=== PATIENT | male | born 1950 | race Caucasian/White ===

== ENCOUNTER → 2023-03-16 11:33 | Outpatient (CLI) | payer MEDICARE, OTHER, SELFPAY ==
--- NOTE | ~2023-03-16 | CT_ITS ---
EXAMINATION: CT sinus wo con DATE: 03/16/2023 11:53 INDICATION: Chronic sinusitis TECHNIQUE: Computed tomography (CT) of the paranasal sinuses was performed without intravenous contra st. The dose-length product (DLP) was 272.93 mGy-cm. Iterative reconstruction was used. COMPARISON: None FINDINGS: There is normal development and pneumatization of the paranasal sinuses. There is mild muco miguel thickening of the frontal and maxillary sinuses and ethmoidal air cells. The sphenoid sinuses are clear. There are 3 mm of rightward deviation of the nasal septum. The bilateral ostiomeatal complexe s are patent. Visualized soft tissues are unremarkable. The mastoid air cells are clear. IMPRESSION: 1. Mild mucosal thickening of the frontal and maxillary sinuses and ethmoidal air cells. Reviewed, dictated and finalized at location L. HT OPERATIONS DISPATCH CLERK IMPRESSION: 1. Mild mucosal thickening of the frontal and maxillary sinuses and ethmoidal a ir cells.
== END ==
PROVIDERS: PCP Internal Medicine; Visit Provider Internal Medicine
DX: J32.9 Chronic sinusitis, unspecified (principal)
CPT/HCPCS: 70486

== ENCOUNTER 2024-08-11 09:35 | Outpatient (CLI) | payer MEDICARE, OTHER, SELFPAY ==
--- OUTSIDE RECORDS SUMMARY | 2024-08-11 09:40 | XMS_ITS | Continuity of Care Document ---
Author Name [facility] Organization [facility] Care Team Providers Care Seal Delivery Vehicle Team Technician Name Role Phone [facility] Unavailable Unavailable Medications Combined list of outpatient medications from Department of Defense and Veterans Affairs facilities.Medications provided include 1) outpatient medications from the last 15 months, and 2) patient-reported medications. Medication Details Route Status Patient Instructions Prescription Expires Prescription Number Last Dispense Date Ordering Provider Order Date Order Qty Source fexofenadin e 180 mg tablet = 1 tab(s), Oral, Daily, # 90 EA, 3 total refill(s ), Hard Stop Oral (given by mouth) Complet ed 03/22/2024 4 2023 90.0 Ambulat ory Pharmac y fexofenadin e 180 mg tablet See Instruct ions, # 90 EA, 2 total refill(s ), Acute Complet ed 03/16/2023 3 2022 90.0 Ambulat ory Pharmac y fexofenadin e 180 mg tablet = 1 tab(s), Oral, Daily, # 90 EA, 3 total refill(s ), Hard Stop Oral (given by mouth) Ordered 03/14/2025 5 2024 90.0 Ambulat ory Pharmac y FOLIC ACID (U/D) 1 MG ORAL TAB 07/12/2024 [id number] 4 2023 90 [facility] [place] ([facility]) FOLIC ACID (U/D) 1 MG ORAL TAB 01/12/2024 [id number] 3 [address] [place] [address] [facility] ([facility]) folic acid 1 mg tablet = 1 tab(s), Oral, Daily, # 90 EA, 3 total refill(s ), Soft Stop Oral (given by mouth) Ordered 5 2024 90.0 Ambulat ory Pharmac y folic acid 1 mg tablet See Instruct ions, # 30 EA, 1 total refill(s ), Acute Complet ed 06/15/2023 3 2023 30.0 Ambulat ory Pharmac y folic acid 1 mg tablet See Instruct ions, # 30 EA, 2 total refill(s ), Hard Stop Complet ed 10/05/2023 3 2023 30.0 Ambulat ory Pharmac y folic acid 1 mg tablet See Instruct ions, Oral, Daily, # 90 EA, 3 total refill(s ), Hard Stop Oral (given by mouth) Complet ed 07/12/2024 5 2024 90.0 Ambulat ory Pharmac y folic acid 1 mg tablet 1 mg, Oral, Daily, # 90 EA, 2 total refill(s ), Hard Stop Oral (given by mouth) Complet ed 01/12/2024 4 2023 90.0 Ambulat ory Pharmac y furosemide 40 mg tablet See Instruct ions, # 90 EA, 2 total refill(s ), Acute Complet ed 03/16/2023 3 2022 90.0 Ambulat ory Pharmac y furosemide 40 mg tablet 40 mg, Oral, # 90 EA, 3 total refill(s ), Hard Stop Oral (given by mouth) Complet ed 03/22/2024 4 2023 90.0 Ambulat ory Pharmac y furosemide 40 mg tablet = 1 tab(s), Oral, Daily, # 90 EA, 3 total refill(s ), Hard Stop Oral (given by mouth) Ordered 03/14/2025 5 2024 90.0 Ambulat ory Pharmac y gabapentin 100 mg capsule See Instruct ions, Oral, TID, # 270 EA, 3 total refill(s ), Hard Stop Oral (given by mouth) Complet ed 03/22/2024 4 2023 270.0 Ambulat ory Pharmac y gabapentin 100 mg capsule = 1 cap(s), Oral, TID, # 270 EA, 3 total refill(s ), Hard Stop Oral (given by mouth) Ordered 03/14/2025 5 2024 270.0 Ambulat ory Pharmac y gabapentin 100 mg capsule See dose instruct ions in comments , # 270 EA, 2 total refill(s ), Acute Complet ed 03/16/2023 3 2022 270.0 Ambulat ory Pharmac y metHOTREXat e (U/D) 2.5 MG ORAL TAB Do not drink alcohol. Avoid exposure to sun.Take or use exactly as directed .Obtain advice for OTCs.Do not take if . 07/12/2024 [id number] 4 [address] [place] [address]) metHOTREXat e (U/D) 2.5 MG ORAL TAB Do not drink alcohol. Avoid exposure to sun.Take or use exactly as directed .Obtain advice for OTCs.Do not take if . 01/12/2024 [id number] 3 [address] [place] [address]) methotrexat e 2.5 mg tablet See Instruct ions, # 52 EA, 3 total refill(s ), Hard Stop Discont inued 07/13/2024 5 2024 52.0 Ambulat ory Pharmac y methotrexat e 2.5 mg tablet = 4 tab(s), Oral, weekly as directed , # 52 EA, 3 total refill(s ), Soft Stop Oral (given by mouth) Ordered 5 2024 52.0 Ambulat ory Pharmac y methotrexat e 2.5 mg tablet See dose instruct ions in comments , # 28 EA, 1 total refill(s ), Acute Complet ed 06/15/2023 3 2023 28.0 Ambulat ory Pharmac y methotrexat e 2.5 mg tablet See Instruct ions, # 52 EA, 3 total refill(s ), Hard Stop Discont inued 04/27/2024 4 2024 52.0 Ambulat ory Pharmac y methotrexat e 2.5 mg tablet See Instruct ions, # 28 EA, 2 total refill(s ), Hard Stop Complet ed 10/05/2023 3 2023 28.0 Ambulat ory Pharmac y methotrexat e 2.5 mg tablet See Instruct ions, # 48 EA, 1 total refill(s ), Hard Stop Complet ed 01/12/2024 4 2023 48.0 Ambulat ory Pharmac y Potassium Chloride (Klotrix Eq.) Tablet 10 mEq Oral Take with plenty of water.Ta ke with food/mil k.Take or use exactly as directed . 06/27/2024 [id number] 4 2023 90 [employer] ([facility]) potassium chloride ER 10 mEq tablet 10 mEq, Oral, Daily, # 90 EA, 0 total refill(s ), Hard Stop Oral (given by mouth) Discont inued 03/24/2023 3 2022 90.0 Ambulat ory Pharmac y potassium chloride ER 10 mEq tablet (dispersibl e) 10 mEq, Oral, Daily, # 90 EA, 0 total refill(s ), Hard Stop Oral (given by mouth) Complet ed 03/22/2024 3 2023 90.0 Ambulat ory Pharmac y potassium chloride ER 20 mEq tablet (dispersibl e) See Instruct ions, # 90 EA, 2 total refill(s ), Acute Complet ed 03/16/2023 3 2022 90.0 Ambulat ory Pharmac y potassium chloride ER [EQV Klor-Con M20] 20 mEq tablet (dispersibl e) = 1 tab(s), Oral, Daily, # 90 EA, 3 total refill(s ), Hard Stop Oral (given by mouth) Ordered 03/14/2025 5 2024 90.0 Ambulat ory Pharmac y potassium chloride ER [EQV-Klor-C on] 10 mEq tablet 10 mEq, Oral, Daily, # 90 EA, 2 total refill(s ), Hard Stop Oral (given by mouth) Complet ed 06/27/2024 4 2024 90.0 Ambulat ory Pharmac y rivaroxaban 20 mg tablet = 1 tab(s), Oral, Daily, # 90 EA, 3 total refill(s ), Hard Stop Oral (given by mouth) Ordered 03/14/2025 5 2024 90.0 Ambulat ory Pharmac y sacubitril- valsartan 24 mg-26 mg tablet See Instruct ions, # 180 EA, 2 total refill(s ), Soft Stop Ordered 5 2024 180.0 Ambulat ory Pharmac y Xarelto 20 mg tablet 20 mg, Oral, Daily, # 90 EA, 3 total refill(s ), Hard Stop Oral (given by mouth) Complet ed 03/22/2024 4 2023 90.0 Ambulat ory Pharmac y Xarelto 20 mg tablet See dose instruct ions in comments , # 90 EA, 2 total refill(s ), Acute Complet ed 03/16/2023 3 2022 90.0 Ambulat ory Pharmac y Allergies, Adverse Reactions, Alerts Combined list of allergies from Department of Defense and Veterans Affairs facilities. It does not include entries that were removed or entered in error. Substance Category Reaction Severity Reaction type Status Date Reported Comments Source No Known Allergies Drug allergy (disorder) active 06/13/2010 [facility] [place] ([facility]) Immunizations Combined list of available immunizations from the Department of Defense and Veterans Affairs facilities. Immunization Series Date Given Administered By Site Reaction Lot Number CVX Code Drug Chuck Tender Status Comments Source influenza virus vaccine, inactivated 2021 zzLef t Arm [id number] Seqirus complet ed influenza virus vaccine, inactivat ed 02/25/22 Given Ambulat ory Pharmac y Influenza vaccine, quadrivalent, adjuvanted (Fluad) 1 2021 Unknown, Provider [id number] Se[employer]irus (SEQ) complet ed Influenza vaccine, quadrival ent, adjuvante d (Fluad) DoD influenza, injectable, quadrivalent- pf 2017 zzLef t Arm [id number] Se[employer]irus complet ed influenza , injectabl e, quadrival ent-pf 01/07/18 Given Ambulat ory Pharmac y Influenza, injectable, quadrivalent, preservative free 1 2017 Unknown, Provider [id number] Se[employer]irus (SEQ) complet ed Influenza , injectabl e, quadrival ent, preservat natalio free DoD pneumococcal polysaccharid e, 23 valent [facility] [id number] Merck & Company Inc complet ed pneumococ jamar polysacch aride, 23 valent 01/14/17 Given Ambulat ory Pharmac y influenza, injectable, quadrivalent- pf 2016 zzLef t Arm [id number] [facility] influenza , injectabl e, quadrival ent-pf 01/14/17 Given Ambulat ory Pharmac y pneumococcal polysaccharid e vaccine, 23 valent 1 2016 Unknown, Provider [id number] Merck (MSD) complet ed pneumococ jamar polysacch aride vaccine, 23 valent DoD Influenza, injectable, quadrivalent, preservative free 1 2016 Unknown, Provider [id number] [facility] (SKB) complet ed Influenza , injectabl e, quadrival ent, preservat natalio free DoD zoster vaccine live 2015 zzLef t Arm [id number] Merck & Company Inc complet ed zoster vaccine live 02/04/16 Given Ambulat ory Pharmac y zoster vaccine, live 1 2015 Unknown, Provider [id number] Merck (MSD) complet ed zoster vaccine, live DoD influenza, seasonal, injectable-pf 2015 zzLef t Arm [id number] [employer] complet ed influenza , seasonal, injectabl e-pf 01/03/16 Given Ambulat ory Pharmac y pneumococcal 13-valent conjugate (PCV13) 2015 [facility] [id number] [employer] complet ed pneumococ jamar 13-valent conjugate (PCV13) 01/03/16 Given Ambulat ory Pharmac y pneumococcal conjugate vaccine, 13 valent 1 2015 Unknown, Provider [id number] [facility] (WAL) complet ed pneumococ jamar conjugate vaccine, 13 valent DoD Influenza, seasonal, injectable, preservative free 1 2015 Unknown, Provider [id number] [employer] (SEQ) complet ed Influenza , seasonal, injectabl e, preservat natalio free DoD influenza, seasonal, injectable-pf 2014 zzLef t Arm [id number] 140 [employer] complet ed influenza , seasonal, injectabl e-pf 01/09/15 Given Ambulat ory Pharmac y Influenza, seasonal, injectable, preservative free 1 2014 Unknown, Provider [id number] [employer] (CSL) complet ed Influenza , seasonal, injectabl e, preservat natalio free DoD influenza, seasonal, injectable-pf 2013 zzLef t Arm [id number] Novartis Pharmaceutica ls complet ed influenza , seasonal, injectabl e-pf 01/04/14 Given Ambulat ory Pharmac y Influenza, seasonal, injectable, preservative free 1 2013 Unknown, Provider [id number] 140 Novartis Pharmaceutica l Taty. (NOV) complet ed Influenza , seasonal, injectabl e, preservat natalio free DoD tetanus, diphtheria, acellular pertu is 2012 zzRig ht Arm [id number] [employer] complet ed tetanus, diphtheri a, acellular pertussis 03/27/13 Given Ambulat ory Pharmac y influenza, seasonal, injectable 2012 zzLef t Arm [id number] sanofi pasteur complet ed influenza , seasonal, injectabl e 03/27/13 Given Ambulat ory Pharmac y tetanus toxoid, reduced diphtheria toxoid, and acellular pertu is vaccine, adsorbed 1 2012 Unknown, Provider [id number] [employer] (SKB) complet ed tetanus toxoid, reduced diphtheri a toxoid, and acellular pertussis vaccine, adsorbed DoD Influenza, seasonal, injectable 1 2012 Unknown, Provider [id number] Sanofi Pasteur (PMC) complet ed Influenza , seasonal, injectabl e DoD Procedures Combined list of: 1) Procedures from Department of Veterans Affairs facilities going back up to thelast 18 months, not all VA non-surgical procedures are included; 2) All procedures from the Department of Defense facilities. Procedure Procedure Type Code Date Perfomer Comments Sourc e No data available for this section Ambulatory P harmacy Social History Combined list of available smoking, tobacco, and other social history from Department of Defense and Veterans Affairs facilities. Social History Type Response Date Comment Sourc e This section is an empty social history section. DoD Assessment and Plan Combined list of future care activities from Department of Defense and Veterans Affairs facilities (e.g., assessment and plan notes, appointments, orders, and referrals). Additional future care activities may be listed in the Plan of Care section. Result Assessment and Plan Date Source Assessment and Plan No data available for this section 08/11/2024 Ambulatory Pharmacy Functional Status Combined list of recent functional and cognitive assessments recorded at Department of Defense and Veterans Affairs (VA).VA Functional [place] Measurement (FIM) Scale: 1 = Total Assistance (Subject = 0% +), 2 = Maximal Assistance (Subject = 25% +), 3 = Moderate Assistance (Subject = 50% +), 4 = Minimal Assistance (Subject = 75% +), 5 = Supervision, 6 = Modified [place] (Device), 7 = Complete [place] (Timely, Safely). Assessment Date/Time Source Assessment Type Assessment Skill Assessment Score Assessment Details No data available for this section
--- OUTSIDE RECORDS SUMMARY | 2024-08-11 09:40 | XMS_ITS | Encounter Summary ---
Author Organization [facility] Address [address] [place] [address] Care Team Providers Care Epitaxial Reactor Technician Name Role Phone John Mederos MD Primary Care Provider [phone] Encounter Details Date Type Department Care Team (Late Contact Info) Description 03/31/2022 Telephone [facility] [address] [id number] Usman Landaverde MD 2 [place] [phone] Social History Tobacco Use Types Packs/Day Years Used Date Smoking Tobacco: Never Smokeless Tobacco: Never Alcohol Use Standard Drinks/Week Comments No 0 (1 standard drink = 0.6 oz pur e alcohol) Sex and Gender Information Value Date Recorded Sex Assigned at Not on file Legal Sex Male 10:15 AM CDT Gender Identity Not on file Sexual Orientation Not on file documented as of this encounter Plan of Treatment Upcoming Encounters Date Type Department Care Team (Late Contact Info) Description 10/30/2024 1:00 PM CDT Office Visit [facility]rology 2 [facility] [address] [place] [phone] Ken Craven PA-C 2 [place] [address] documented as of this encounter Visit Diagnoses Not on filedocumented in this encounter Care Teams Epitaxial Reactor Technician Relationship Specialty Start Date End Date John Mederos MD [address] [address] [address] [place] [phone] PCP - General Internal Medicine 07/13/14 documented as of this encounter
--- OUTSIDE RECORDS SUMMARY | 2024-08-11 09:40 | XMS_ITS | Patient Health Record ---
Author Organization [facility] [employer] Address [address] [facility] [address] [place] [address] Care Team Providers Care Social Economist Name Role Phone Deana Park Primary Care Provider Allergies No Known Allergies Reason For Referral No Information Medications Medication SIG (Take, Route, Frequency, Duration) Notes Start Date End Date Status Folic Acid Active Casodex Active Gabapentin Active Vitamin B 12 Active potassium Active Methotrexate Active lasix Active Catina Active Xarelto Active Immunizations Vaccine Route Administration Date Status Comme nts [id number] Vaccine Unknown 06/12/2020 Administere d [id number] Vaccine Unknown 07/09/2020 Administere d Social History Tobacco Use: Social History Observation Description Date Details (start date - stop date) Never Smoker NA - NA Tobacco Use/Smoking Question Answer Notes Are you a nonsmoker Alcohol Screen (Audit-C) Question Answer Notes Did you have a drink containing alcohol in the p ast year? No Points 0 Interpretation Negative Plan Of Treatment No Information Insurance Providers Payer Name Payer Address Payer Phone Subscriber Number Group Number Insured Name Patient Relationship to Insured Coverage Start Date Coverage End Date [facility] [address] [address] [place], [place] [id number] [phone] Chris Segura Self - patient is the insured
--- OUTSIDE RECORDS SUMMARY | 2024-08-11 09:40 | XMS_ITS | Clinical Summary ---
Author Organization [facility] [employer] Address [address] [place] [address] Care Team Providers Care Adjunct Art History Instructor Name Role Phone John Mederos MD Primary Care Provider [phone] Source Comments [facility] [employer],non-owned Affiliates and Associated Physician Practices is amultiple site organization consisting of ambulatory clinics and hospital sitesin [place], [place], [place] and [place]. This disclosure is being madepursuant to the Care Everywhere program and may not contain all information available regarding this patient. Last updated [employer] Allergies No known active allergies Medications * Be aware that medications may not be up to date on this document. Alwaysverify current medications with the patient. bicalutamide (Casodex) 50 MG tablet Take by mouth 3 times daily Active cyanocobalamin (VITAMIN B-12) 100 MCG tablet Take 1 (one) tablet by mouth once daily Active pyridoxine (VITAMIN B-6) 50 MG tablet Take 1 (one) tablet by mouth once daily Active methotrexate 2.5 MG tablet Take 1 (one) tablet by mouth every Wednesday, Wednesday & Wednesday Active folic acid (FOLVITE) 1 MG tablet Take 1 (one) tablet by mouth once daily Active furosemide (Lasix) 40 MG tablet Take 1 (one) tablet by mouth 2 times daily Active fexofenadine (Catina) 180 MG tablet every 24 hours Activ e potassium chloride (KLOR-CON) 20 MEQ packet every 24 hours Acti ve aspirin (ASPIRIN) 325 MG tablet every 24 hours Activ e triamcinolone acetonide (KENALOG) 0.1 % cream triamcinolone acetonide 0.1 % topical cream APPLY A THIN LAYER TO THE AFFECTED AREA(S) BY TOPICAL ROUTE 2 TIMES PER DAY Active XARELTO 20 MG tablet 0 Active gabapentin (NEURONTIN) 100 MG capsule Take 1 capsule by mouth 3 times daily 90 capsule 11 0 Active Additional Information Patient taking differently: 200 mgOral 3 TIMES DAILY, Reported on 11/11/2023 fluticasone propionate (Flonase) 50 MCG/ACT nasal sprayIndicatio ns:Allergic Rhinitis [place] 2 (two) sprays into each nostril once daily Reasons: Allergic Rhinitis 48 g 1 2 Active Active Problems Problem Noted Date Diagnosed Date Follow-up examination, following other surgery 0 05/10/2019 Personal history of malignant neoplasm of prosta te 05/10/2019 Sebaceous cyst 05/10/2019 Encounter for long-term use of antiplatelets/antithrombotics 05/10/2019 Blood in urine 01/28/2019 Deep venous thrombosis 01/28/2019 Edema 01/28/2019 Hemorrhage of rectum and anus 01/28/2019 Polyneuropathy 01/28/2019 Primary malignant neoplasm of prostate 9 Pulmonary embolism 01/28/2019 Venous embolism 01/28/2019 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 Venous insufficiency of leg 09/23/2017 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 [address] Jose La MD Discharge Disposition: Home or Self Care 06/19/2024 Travel from Last 3 Months Immunizations Immunization Administration Dates Next Due FLU VACCINE QUAD IIV4 SPLIT 0.25 ML IM 8 INFLUENZA VACCINE, HIGH-DOSE , QUADR. (FLUZONE HIGH-DOSE QUADRIVALENT; 65Y+), 0.7 ML (HD-IIV4) 01/30/2019 PNEUMOCOCCAL PPSV23 01/14/2017 Pneumococcal Pcv13 Conj 01/03/2016 TDAP (7yrs+) 03/27/2013 ZOSTER VACCINE, LIVE 02/04/2016 Family History Medical History Relation Name Comments Cancer - Bladder Brother Cancer - Prostate Brother Cancer - Prostate Father Cancer - Other Mother Relation Name Status Comments Brother Father Mother Social History Tobacco Use Types Packs/Day Years Used Date Smoking Tobacco: Never Smokeless Tobacco: Never Tobacco Cessation:Counseling Given: Not Answered Alcohol Use Standard Drinks/Week Comments No 0 (1 standard drink = 0.6 oz pur e alcohol) Sex and Gender Information Value Date Recorded Sex Assigned at Not on file Legal Sex Male 10:15 AM CDT Gender Identity Not on file Sexual Orientation Not on file Last Filed Vital Signs Vital Sign Reading Time Taken Comments Blood Pressure 114/59 11/11/2023 1:31 PM CDT Pulse 66 11/11/2023 1:31 PM CDT Temperature 36.6 C (97.8 F) 11/25/2021 8:12 AM CDT Respiratory Rate 20 11/25/2021 8:12 AM CDT Oxygen Saturation 96% 11/25/2021 8:12 AM CDT Inhaled Oxygen Concentration - - Weight 134.5 kg (296 lb 9.6 oz) 11/11/2023 1:31 PM CDT Height 180.3 cm (5' 11 ) 11/11/2023 1:31 PM CDT Body Mass Index 41.37 11/11/2023 1:31 PM CDT Plan of Treatment Upcoming Encounters Date Type Department Care Team (Late st Contact Info) Description 10/30/2024 1:00 PM CDT Office Visit [facility] - Neurology [address] [facility] [address] [place] [id number] Ken Craven PA-C [address] [place] [address] Health Maintenance Due Date Last Done Comments COLOGUARD (AGES 45-75) - COLON CA SCREENING 1948 COLON MONITORING 1948 COLONOSCOPY - COLON CA SCREENING 1948 CT COLONOGRAPHY - COLON CA SCREENING 1950 Colorectal Cancer Screening 1948 FIT - COLON CA SCREENING 1948 FLEX SIG - COLON CA SCREENING 1948 LIPID TESTING 1948 HEPATITIS C SCREENING 11/18/1966 ZOSTER VACCINE (2 of 3) 03/31/2016 02/04/2016 DTAP/TDAP/TD VACCINES (2 - Td or Tdap) 03/27/2023 03/27/2013 Respiratory Syncytial Virus (RSV) Vaccine Pt: or over 60 yrs (1 - 1-dose 75+ series) 11/23/2023 COVID-19 VACCINE (3 - season) 2023 07/09/2020, 06/12/2020 DEPRESSION SCREENING 03/29/2024 MEDICARE AWV CALENDAR YEAR 2024 INFLUENZA VACCINE (Season Ended) 2024 02/25/2022, 01/30/2019, 01/07/2018, Additional history exists PNEUMOCOCCAL VACCINE 50+ Completed 01/14/2017, 09/2015 HEPATITIS B VACCINE Aged Out No longe r eligible based on patient's age to complete this topic HIB VACCINE Aged Out No longer eligi ble based on patient's age to complete this topic HPV VACCINE Aged Out No longer eligi ble based on patient's age to complete this topic MENINGOCOCCAL (Group B) VACCINE SHARED DECISION-MAKING Aged Out No longer eligible based on patient's age to complete this topic MENINGOCOCCAL GROUPS A/C/Y/W VACCINE Aged Out No longer eligible based on patient's age to complete this topic Procedures Procedure Name Priority Date/Time Associated Diagnosis Comments URINE MICROSCOPIC ONLY REFLEX TO CULTURE Routine 06/19/2024 2:14 PM CDT Encounter for long-term (current) use of medications CBC W AUTO DIFFERENTIAL Routine 06/19/2024 2:14 PM CDT Encounter for long-term (current) use of medications HEPATIC FUNCTION PANEL Routine 2:14 PM CDT Encounter for long-term (current) use of medications BUN+CREATININE BLOOD PNL Routine 06/19/2024 2:14 PM CDT Encounter for long-term (current) use of medications URINALYSIS REFLEX MICROSCOPIC REFLEX CULTURE Routine 06/19/2024 2:14 PM CDT Encounter for long-term (current) use of medications C-REACTIVE PROTEIN Routine 06/19/2024 2: 14 PM CDT Encounter for long-term (current) use of medications ERYTHROCYTE SEDIMENTATION RATE Routine 06/19/2024 2:14 PM CDT Encounter for long-term (current) use of medications from Last 3 Months Results * (ABNORMAL) BUN+CREATININE BLOOD PNL (06/19/2024 2:14 PM CDT) BUN 7.3(L) 8.4 - 25.7 mg/dL 06/19/2024 5:23 PM CDT [facility] Creatinine 1.04 0.72 - 1.25 mg/dL 06/19/2024 5:23 PM CDT [facility] eGFR 75(L) >90 mL/min/1.7 3m2 06/19/2024 5:23 PM CDT [facility] Comment:The GFR result was c alculated using the updated CKD-EPI Creatinine Equation (2020). Blood BLOOD SPECIMEN / Unknown Venipuncture / Unknown 06/19/2024 2:14 PM CDT 06/19/2024 2:15 PM CDT us Jose La MD LAB - CHEMISTRY ORDERABLES Fin al Result [facility] [address] [place], [place] [address] * (ABNORMAL) URINE MICROSCOPIC ONLY REFLEX TO CULTURE (06/19/2024 2:14 PM CDT) Reflex Status Culture not indicated 06/19/2024 5:21 PM CDT [facility] RBC UA >100(A) None Seen, 0-2, 3-5 # /hpf 06/19/2024 5:21 PM CDT [facility] WBC UA 0-5 None Seen, 0-5 # /hpf 06/19/2024 5:21 PM CDT [facility] Bacteria UA None Seen None Seen 06/19/2024 5:21 PM CDT [facility] Squamous Epithelial Cells 0-2 None Seen, 0-2, 3-5 /hpf 06/19/2024 5:21 PM CDT [facility] Mucus UA 2+ /LPF 06/19/2024 5:21 PM CDT [facility] Hyaline Casts 0-2 None Seen, 0-2 /LPF 06/19/2024 5:21 PM CDT [facility] Calcium Oxalate Crystals Occasional(A) None seen /HPF 06/19/2024 5:21 PM CDT [facility] Urine URINE SPECIMEN OBTAINED BY CLEAN CATCH PROCEDURE / Unknown Collection / Unknown 06/19/2024 2:14 PM CDT 06/19/2024 2:15 PM CDT Narrative [facility] - 06/19/2024 5:21 PM CDT us Jose La MD LAB - URINALYSIS ORDERABLES Fi nal Result [facility] [address] [place] [id number] * (ABNORMAL) URINALYSIS REFLEX MICROSCOPIC REFLEX CULTURE (06/19/2024 2:14 PM CDT) Color UA Yellow Straw, Yellow 06/19/2024 5:21 PM CDT [facility] Clarity UA Slt Cloudy(A) Clear 06/19/2024 5:21 PM CDT [facility] Glucose UA Negative Negative 06/19/2024 5:21 PM CDT [facility] Bilirubin UA Negative Negative 06/19/2024 5:21 PM CDT [facility] Ketone UA Negative Negative 06/19/2024 5:21 PM CDT [facility] Specific [place] UA 1.020 1.005 - 1.030 06/19/2024 5:21 PM CDT [facility] Blood UA 1+(A) Negative 06/19/2024 5:21 PM CDT [facility] pH UA 5.0 5.0 - 8.0 pH 06/19/2024 5:21 PM CDT [facility] Protein UA Negative Negative 06/19/2024 5:21 PM CDT [facility] Urobilinogen UA 2.0(A) Negative, >8.0 mg/dL 06/19/2024 5:21 PM CDT [facility] Nitrite UA Negative Negative 06/19/2024 5:21 PM CDT [facility] Leukocyte UA Negative Negative 06/19/2024 5:21 PM CDT [facility] Urine Microscopy Urine microscopy to follow 06/19/2024 5:21 PM CDT [facility] Urine URINE SPECIMEN OBTAINED BY CLEAN CATCH PROCEDURE / Unknown Collection / Unknown 06/19/2024 2:14 PM CDT 06/19/2024 2:15 PM CDT Narrative [facility] - 06/19/2024 5:21 PM CDT Ascorbic Acid can cause false negative urine strip tests for blood, glucose, nitrite, and bilirubin. Jose La MD LAB - URINALYSIS ORDERABLES Fi nal Result Performing Organization Address [facility] Co de Phone Number [facility] [address] * (ABNORMAL) C-REACTIVE PROTEIN (06/19/2024 2:14 PM CDT) [facility] C-Reactive Protein 0.66(H) <=0.50 mg/dL 06/19/2024 5:23 PM CDT [facility] Blood BLOOD SPECIMEN / Unknown Venipuncture / Unknown 06/19/2024 2:14 PM CDT 06/19/2024 2:15 PM CDT Jose La MD LAB - CHEMISTRY ORDERABLES Fin al Result Performing Organization Address [facility]/State/ZIP Co de Phone Number [facility] [address] * (ABNORMAL) ERYTHROCYTE SEDIMENTATION RATE (06/19/2024 2:14 PM CDT) [facility] Erythrocyte Sedimentation Rate Automated 35(H) <20 MM/HR 06/19/2024 5:47 PM CDT [facility] Blood BLOOD SPECIMEN / Unknown Venipuncture / Unknown 06/19/2024 2:14 PM CDT 06/19/2024 2:15 PM CDT us Jose La MD LAB - HEMATOLOGY ORDERABLES Fi nal Result [facility] [address] [place], [place] [id number] [place] [address] * (ABNORMAL) CBC W/ DIFFERENTIAL (06/19/2024 2:14 PM CDT) Pathologist [facility] WBC 5.6 4.0 - 10.7 x10E9/L 06/19/2024 5:20 PM CDT [facility] RBC Count 4.95 4.30 - 5.80 x10E12/L 06/19/2024 5:20 PM CDT [facility] Hemoglobin 14.8 13.3 - 17.5 g/dL 06/19/2024 5:20 PM CDT [facility] Hematocrit 46.4 38.7 - 51.1 % 06/19/2024 5:20 PM CDT [facility] MCV 93.7 80.0 - 98.0 fL 06/19/2024 5:20 PM CDT [facility] MCH 29.9 26.7 - 33.6 pg 06/19/2024 5:20 PM CDT [facility] MCHC 31.9 31.7 - 36.3 g/dL 06/19/2024 5:20 PM CDT [facility] RDW-CV 14.8 11.3 - 14.8 % 06/19/2024 5:20 PM CDT [facility] Platelet Count 264 150 - 420 x10E9/L 06/19/2024 5:20 PM CDT [facility] MPV 10.3 7.8 - 11.4 fL 06/19/2024 5:20 PM CDT [facility] Neutrophil % 58.2 41.0 - 74.0 % 06/19/2024 5:20 PM CDT [facility] Lymphocyte % 24.8 17.0 - 47.0 % 06/19/2024 5:20 PM CDT [facility] Monocyte % 13.8(H) 3.0 - 11.0 % 06/19/2024 5:20 PM CDT [facility] Eosinophil % 2.3 0.0 - 7.0 % 06/19/2024 5:20 PM CDT [facility] Basophil % 0.7 0.0 - 1.6 % 06/19/2024 5:20 PM CDT [facility] Immature Granulocytes % 0.2 0.0 - 1.0 % 06/19/2024 5:20 PM CDT [facility] Neutrophil Absolute 3.28 1.60 - 7.50 x10E9/L 06/19/2024 5:20 PM CDT [facility] Lymphocyte Absolute 1.40 1.00 - 4.40 x10E9/L 06/19/2024 5:20 PM CDT [facility] Monocyte Absolute 0.78 0.15 - 1.00 x10E9/L 06/19/2024 5:20 PM CDT [facility] Eosinophil Absolute 0.13 0.00 - 0.60 x10E9/L 06/19/2024 5:20 PM CDT [facility] Basophil Absolute 0.04 0.00 - 0.13 x10E9/L 06/19/2024 5:20 PM CDT [facility] Blood BLOOD SPECIMEN / Unknown Venipuncture / Unknown 06/19/2024 2:14 PM CDT 06/19/2024 2:15 PM CDT us Jose La MD LAB - HEMATOLOGY ORDERABLES Fi nal Result [facility] [address] * (ABNORMAL) HEPATIC FUNCTION PANEL (06/19/2024 2:14 PM CDT) Alkaline Phosphatase 62 40 - 150 U/L 06/19/2024 5:23 PM CDT [facility] ALT 21 <=55 U/L 06/19/2024 5:23 PM CDT [facility] AST 26 5 - 34 U/L 06/19/2024 5:23 PM CDT [facility] Protein Total 7.7 6.4 - 8.3 gm/dL 06/19/2024 5:23 PM CDT [facility] Albumin 3.6 3.4 - 4.8 gm/dL 06/19/2024 5:23 PM CDT [facility] Bilirubin Total 0.5 0.2 - 1.2 mg/dL 06/19/2024 5:23 PM CDT [facility] Bilirubin Direct 0.21 <=0.5 mg/dL 06/19/2024 5:23 PM CDT [facility] Albumin/Globulin Ratio 0.9 0.9 - 1.6 06/19/2024 5:23 PM CDT [facility] Globulin Total 4.1(H) 2.6 - 4.0 gm/dL 06/19/2024 5:23 PM CDT [facility] Bilirubin Indirect 0.3 0.2 - 0.9 mg/dL 06/19/2024 5:23 PM CDT [facility] Blood BLOOD SPECIMEN / Unknown Venipuncture / Unknown 06/19/2024 2:14 PM CDT 06/19/2024 2:15 PM CDT us Jose La MD LAB - CHEMISTRY ORDERABLES Fin al Result Performing Organization Address City/State/[facility] Co de Phone Number [facility] 1 Jonel Scientologist [place], [place] [id number] [place] [address] from Last 3 Months Insurance [employer] MEDICARE ADV AETNA MEDICARE ADV Care Teams Adjunct Art History Instructor Relationship Specialty Start Date End Date John Mederos MD [address] [place] [address] [address] [place] [address] PCP - General Internal Medicine 07/13/14
--- OUTSIDE RECORDS SUMMARY | 2024-08-11 09:40 | XMS_ITS | CONTINUITY OF CARE DOCUMENT ---
Author Name linda mckeon Address Unknown Organization [facility] Address [address] [facility] [address] [place] [address] Phone [phone] Care Team Providers Care Hris Analyst Name Role Phone Roland PERSAUD, Skylar Unavailable [phone] JOSE ALBERTO PERSAUD, YVAN Unavailable JOSE ALBERTO PERSAUD, YVAN Unavailable [phone] PROBLEMS Condition Status Date Provider Notes Cardiology examination active Garret Sandy Irregular cardiac rhythm completed - Skylar Watkins MD Prostate cancer, hx of, radiation active Garret Ahmedzai Rheumatoid arthritis active Garret Ahmedzai Hx of DVT active Garret Sandy Pulmonary embolism, hx of active Garret Negrete tamera Dyspnea on exertion active Garret Sandy LETHA--on cpap active Garret Sandy Diastolic dysfunction--nl ef by echo, 05/2024 active Skylar Watkins MD Essential Hypertension active Skylar Watkins MD ENCOUNTERS Date Type Provider Location Encounter Diag nosis - In-person encounter Office Visit Skylar Watkins MD [facility] Irregular cardiac rhythmDiastolic dysfunction--nl ef by echo, 05/2024Essential Hypertension - In-person encounter Office Visit Skylar Watkins MD [facility] Diastolic dysfunctio n--nl ef by echo, 05/2024 - In-person encounter Office Visit Skylar Watkins MD [facility] Cardiology examinationProstate cancer, hx of, radiationRheumatoid arthritisHx of DVTPulmonary embolism, hx ofDyspnea on exertionOSA--on cpap VITAL SIGNS Date Observation Value Provider blood pressure, diastolic 67 mm[Hg] To sejal Watkins MD Body Mass Index (Ratio) 40.17 kg/m2 Jed Watkins MD blood pressure, systolic 118 mm[Hg] Rossana isaacgaviota Huston oxygen saturation, oximetry 97 % [facility] 57 /min [facility] respiratory rate E&M 12 /min [facility] weight E&M 280 [lb_av] [facility] height E&M 70 [in_i] [facility] blood pressure, cuff size regular [facility] Body Mass Index (Ratio) 39.17 kg/m2 Jed Watkins MD blood pressure, diastolic 68 mm[Hg] [place] blood pressure, systolic 135 mm[Hg] Pauline Villanueva pulse rate 78 /min Kendra Meekshen s oxygen saturation, oximetry 96 % Kendra Villanueva blood pressure, cuff size regular [place] weight E&M 273 [lb_av] Paradise Sergio s height E&M 70 [in_i] [place] Sergio s Body Mass Index (Ratio) 40.89 kg/m2 Jed Watkins MD oxygen saturation, oximetry 98 % [place] pulse rate 74 /min Kendra Sergio s blood pressure, diastolic 72 mm[Hg] Br daniellalle Villanueva blood pressure, systolic 130 mm[Hg] Pauline Villanueva blood pressure, cuff size regular Br abraham Villanueva weight E&M 285 [lb_av] Kendra Hill s height E&M 70 [in_i] Kendra Hill s ALLERGIES No Known Drug Allergies HISTORY OF MEDICATION USE Medication Status Instructions Dates Provider Indications Com ments Entresto 24-26 mg tablet active TAKE 1 TABLET BY MOUTH TWICE DAILY 8 Garret Sandy folic acid 1 mg tablet active Garret Majori Xarelto 20 mg tablet active Kendra Villanueva Allergy Relief (fexofenadine) 180 mg tablet active Kendra Villanueva methotrexate sodium 2.5 mg tablet active Kendra Villanueva furosemide 20 mg tablet active TAKE 1 TABLET BY MOUTH EVERY DAY Vanessa Ventimiglia SUTURE GAUGER gabapentin 300 mg capsule active Kendra Villanueva potassium chloride 20 mEq tablet,ER particles/crystal s active Kendra Villanueva Casodex 50 mg tablet active Kendra Villanueva SOCIAL HISTORY Date Observation Value Provider personal history of marijuana use no Garret Sandy drug use no Garret Sandy alcohol use no Garret Negretezabilly smoking status Never smoker Garret Sandy personal history of marijuana use no Vanessa Ventimiglia SUTURE GAUGER drug use no Vanessa Ventimig home SUTURE GAUGER alcohol use no Vanessa Ventimig home SUTURE GAUGER smoking status Never smoker Vanessa Ventim iglia SUTURE GAUGER INS[employer]ANCE PROVIDERS Payer name Policy type / Coverage type [place] [employer] party ID FOR LIFE [id number] [employer] MEDICARE [place] PPO Medicare [id number] ADVANCE DIRECTIVES Name Date DISCUSSED - NO DECISION MADE TREATMENT PLAN Date Name Performer Cardiology:This visi t has been a part of the consistent, comprehensive, and ongoing management of the chronic medical condition(s) listed above for the patient. Skylar Watkins MD Cardiology Skylar Watkins MD Cardiology Skylar Watkins MD Cardiology Skylar Watkins MD Cardiology Skylar Watkins MD Cardiology:EF of 55% on echo with mild LVH and LAE W ill trial Entresto p atient will return in one month T his visit has been a part of the consistent, comprehensive, and ongoing management of the chronic medical condition(s) listed above for the patient. Skylar Watkins MD Cardiology:Has diast olic dysfunction on echo W ill trial entresto s uggest referral to pulmonary as well Skylar Watkins MD Cardiology:The patie nt is using CPAP on a regular basis. The patient has been benefiting from therapy and should continue use. Skylar Watkins MD Cardiology:tele kevin tor with NSR Skylar Watkins MD Cardiology Vanessa Ventimigl ia [facility] Cardiology:The patie nt is using CPAP on a regular basis. The patient has been benefiting from therapy and should continue use. Vanessa Ventimiglia [facility] Cardiology:tele kevin tor with NSR Vanessa Ventimiglia [facility] Cardiology:EF of 55% on echo with mild LVH and LAE W ill trial Entresto p atient will return in one month Vanessa Ventimiglia [facility] Cardiology:Has diast olic dysfunction on echo W ill trial entresto s uggest referral to pulmonary as well Vanessa Ventimiglia [facility] Cardiology Skylar Watkins MD Cardiology Skylar Watkins MD Cardiology Skylar Watkins MD Cardiology: O rders: C omplete Echo ([id number]) S tress Regadenoson ([id number]) Skylar Watkins MD Date Name Monitor - Telemetry (Mobile Cardiac) Stress Regadenoson Complete Echo HISTORY OF PROCEDURES Procedure Date Procedure Name Provider Procedure Notes S tatus Complex e/m visit add on Skylar Watkins MD completed Complex e/m visit add on Skylar Watkins MD completed EKLeonor Watkins MD completed
--- OUTSIDE RECORDS SUMMARY | 2024-08-11 09:40 | XMS_ITS | Clinical Summary ---
Author Organization [employer] [address] Address [address] [place] [address] Care Team Providers Care Ag Service Manager Name Role Phone John Mederos MD Primary Care Provider [phone] Allergies No known active allergies Medications fexofenadine (MIGUEL ALLERGY) 60 mg tablet Take 180 mg by mouth 2 times daily. Active bicalutamide (CASODEX) 50 mg Tablet Take 50 mg by mouth daily. Active folic acid (FOLVITE) 1 mg tablet Take 1 mg by mouth daily. Active furosemide (LASIX) 40 mg tablet Take 40 mg by mouth daily. Active methotrexate (RHEUMATREX) 2.5 mg Tablet Take 2.5 mg by mouth every 7 days. Active gabapentin (NEURONTIN) 100 mg capsule Take 100 mg by mouth 3 times daily. Active potassium CHLORIDE (KLOR-CON) 20 mEq Packet Take 20 mEq by mouth 2 times daily. Active pyridoxine, vitamin B6, (VITAMIN B6) 50 mg tablet Take 50 mg by mouth daily. Active rivaroxaban (XARELTO) 20 mg Tablet Take 20 mg by mouth daily. 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 Family History Medical History Relation Name Comments Prostate Cancer Brother 1 Esophageal Cancer Brother 2 Prostate Cancer Father Diabetes Mother Other Mother Myelodsplasia Relation Name Status Comments Brother 1 Brother 2 Father Mother Social History Tobacco Use Types Packs/Day Years Used Date Smoking Tobacco: Former Cigarettes Q uit: 1990 Alcohol Use Standard Drinks/Week Comments No 0 (1 standard drink = 0.6 oz pur e alcohol) 1998 quite Sex and Gender Information Value Date Recorded Sex Assigned at Not on file Legal Sex Male 3:10 PM CDT Gender Identity Not on file Sexual Orientation Not on file Last Filed Vital Signs Vital Sign Reading Time Taken Comments Blood Pressure 112/68 02/07/2018 2:18 PM CASING MACHINE OPERATOR Pulse 70 02/07/2018 2:18 PM CASING MACHINE OPERATOR Temperature - - Respiratory Rate - - Oxygen Saturation 99% 02/07/2018 2:18 PM CASING MACHINE OPERATOR Inhaled Oxygen Concentration - - Weight 140.2 kg (309 lb) 02/07/2018 2:18 PM CASING MACHINE OPERATOR Height 180.3 cm (5' 11 ) 02/07/2018 2:18 PM CASING MACHINE OPERATOR Body Mass Index 43.1 02/07/2018 2:18 PM CASING MACHINE OPERATOR Plan of Treatment Health Maintenance Due Date Last Done Comments DTAP/TDAP/TD VACCINES (1 - Tdap) 11/23/1967 COLORECTAL SCREENING 1993 Colorectal Cancer Screening 1993 FIT-DNA Q 3 years 1993 FIT/FOBT Q 1 year 1993 Flex Sig/CT Colonography Q 5 years 1993 PNEUMOCOCCAL VACCINE 50+ YEARS (1 of 1 - PCV) 11/22/18 99 ZOSTER VACCINE (1 of 2) 1998 INFLUENZA VACCINE (#1) 2023 RSV VACCINE (60+ or ) (1 - 1-dose 75+ series) 11/23/2023 Insurance MEDICARE PART A AND B [employer] OPEN ACCESS Care Teams Ag Service Manager Relationship Specialty Start Date End Date John Mederos MD [address] [facility] [address] [place] [address] PCP - General Internal Medicine 01/27/18
--- OUTSIDE RECORDS SUMMARY | 2024-08-11 09:40 | XMS_ITS | Clinical Summary ---
Author Organization [facility] Address [address] [place] [id number] Care Team Providers Care Block Paver Name Role Phone Unavailable Primary Care Provider Unavailabl e Social History Tobacco Use Types Packs/Day Years Used Date Smoking Tobacco: Never Assessed Sex and Gender Information Value Date Recorded Sex Assigned at Not on file Legal Sex Male 1:17 PM CDT Gender Identity Not on file Sexual Orientation Not on file Plan of Treatment Health Maintenance Due Date Last Done Comments Colorectal Cancer Screening Colonoscopy (10 Years) 1948 Hepatitis C 1966 DTaP, Tdap and Td Vaccines ( 1 - Tdap) 11/23/1967 Pneumococcal Vaccine: 50+ Ye ars (1 of 1 - PCV) 1998 Zoster Vaccines (1 of 2) 1998 Annual Medicare Wellness Visit 2013 RSV Immunization or 60+ Years (1 - 1-dose 75+ series) 11/23/2023 COVID-19 Vaccine ( - 2023-2 5 season) 2023 Meningococcal B Vaccine Aged Out No l onger eligible based on patient's age to complete this topic Meningococcal Vaccine Aged Out No shanique steve eligible based on patient's age to complete this topic RSV Immunizations Under 20 Months Aged Out No longer eligible based on patient's age to complete this topic Insurance MEDICARE [employer] OPEN ACCESS BLUE [facility]
--- NOTE | 2024-08-11 16:45 | WPDPFTINT ---
PFT Procedure Performed PFT Procedure Performed Spirometry with Pre/Post Bronchodilator Plethysmography (Lung Vol) Diffusing Cap (DLCO) Flow Vol Loop PFT Interpretation This is a pulmonary function test with pre and post-bronchodilator spirometry, plethysmography and diffusing capacity. The test was performed and results interpreted in accordance with the 2019 and 2005 ATS/ERS Task Force guidelines respectively using the Global Lung Function Initiative-2012 reference equations. Patient demonstrated good effort and cooperation. Reproducibility criteria were met. The quality of the pre bronchodilator spirometry maneuver was Grade A and post bronchodilator spirometry maneuver was Grade A. Findings: Spirometry: The contour the inspiratory and expiratory flow tracing are normal. the pre bronchodilator FVC is 4.04 L, 97% predicted. The pre bronchodilator FEV1 is 3.08 L, 99% predicted. The pre bronchodilator FEV1: FVC ratio is 76%. The post bronchodilator FVC is 4.08 L, representing a 1% increase. The post bronchodilator FEV1 is 3.19 L, representing a 3% increase. The post bronchodilator FEV1: FVC ratio is 78%. Plethysmography: The total lung capacity is 5.79 L, 80% predicted. The functional residual capacity is 2.48 L, 64% predicted. The residual volume is 1.75 L, 67% predicted. Diffusing capacity: The diffusing capacity unadjusted for hemoglobin and carboxyhemoglobin is 19.6, 77% predicted. The diffusing capacity adjusted for alveolar volume is 3.51, 94% predicted. Impression: The spirometry is normal without evidence of an obstructive abnormality. There is no significant improvement after inhaling a single dose of albuterol. The total lung capacity and functional residual capacity are normal with a decreased residual volume. This is an abnormal but nonspecific lung volume pattern. The diffusing capacity is normal. There are no prior studies for comparison
== END 2024-08-11 09:36 | disposition home or self-care (01) ==
LOC: ANHPFT 09:37
PROVIDERS: PCP Internal Medicine; Visit Provider Internal Medicine
DX: R06.09 Other forms of dyspnea (principal)
CPT/HCPCS: 94060; 94726; 94729